=== PATIENT | female | born 1960 | race Caucasian/White ===

== ENCOUNTER 2018-07-31 00:35 | Emergency (ER) | payer BC ==
--- NOTE | 2018-07-31 00:53 | PDOC ---
History of Present Illness - General Stated Complaint: VOMIT Time Seen by Provider: 07/31/18 00:52 - History of Present Illness Initial Comments: 07/31/18 00:53 Ms. Peterson is a 57 yo female w/ pmh of breast CA (s/p bilateral mastectomy , not currently in treatment) and chronic vaginal pain who presents for evaluation of 1 day history of nausea/vomiting. Patient reports she ate pea soup tonight from last week and believes this may be the cause of her pain. Vomit looks like the pea soup she ate. No one else is sick at home however no one else ate the same food tonight. The patient denies chest pain, shortness of breath, headache and dizziness. Denies fever, chills, diarrhea and constipation. Denies dysuria, frequency, urgency and hematuria. Past History - Past Medical History Allergies/Adverse Reactions: Allergies Allergy/AdvReac Type Severity Reaction Status Date / Time No Known Allergies Allergy Verified 07/31/18 01:00 Review of Systems - Review of Systems Comments:: 07/31/18 00:53 GENERAL/CONSTITUTIONAL: No fever or chills. No weakness. HEAD, EYES, EARS, NOSE AND THROAT: No change in vision. No ear pain or discharge. No sore throat. CARDIOVASCULAR: No chest pain or shortness of breath RESPIRATORY: No cough, wheezing, or hemoptysis. GASTROINTESTINAL: +N/V as described w/ additional generalized abdominal pain. No diarrhea or constipation. GENITOURINARY: No dysuria, frequency, or change in urination. MUSCULOSKELETAL: No joint or muscle swelling or pain. No neck or back pain. SKIN: No rash NEUROLOGIC: No headache, vertigo, loss of consciousness, or change in strength/ sensation. ENDOCRINE: No increased thirst. No abnormal weight change HEMATOLOGIC/LYMPHATIC: No anemia, easy bleeding, or history of blood clots. ALLERGIC/IMMUNOLOGIC: No hives or skin allergy. 07/31/18 01:20 *Physical Exam - Physical Exam Comments: 07/31/18 00:53 GENERAL: Awake, alert, and fully oriented, in no acute distress HEAD: No signs of trauma, normocephalic, atraumatic EYES: PERRLA, EOMI, sclera anicteric, conjunctiva clear ENT: Auricles normal inspection, hearing grossly normal, nares patent, oropharynx clear without exudates. Moist mucosa NECK: Normal ROM, supple, no lymphadenopathy, JVD, or masses LUNGS: No distress, speaks full sentences, clear to auscultation bilaterally HEART: Regular rate and rhythm, normal S1 and S2, no murmurs, rubs or gallops, peripheral pulses normal and equal bilaterally. ABDOMEN: +Diffuse abdominal TTP. Soft, normoactive bowel sounds. No guarding, no rebound. No masses EXTREMITIES: Normal inspection, Normal range of motion, no edema. No clubbing or cyanosis. NEUROLOGICAL: Cranial nerves II through XII grossly intact. Normal speech, normal gait, no focal sensorimotor deficits SKIN: Warm, Dry, normal turgor, no rashes or lesions noted. ED Treatment Course - LABORATORY CBC & Chemistry Diagram: 07/31/18 01:51 07/31/18 01:51 Medical Decision Making - Medical Decision Making 07/31/18 03:25 Ms. Peterson is a 57 yo female w/ pmh as described who presented for evaluation of acute nausea and vomiting. Patient given fluids/zofran/morphine with evaluation by CT abdomen and labs for infectious process. 07/31/18 06:22 Patient improved however with continued nausea. Repeat zofran and 2L bolus NS given for further symptomatic relief. CT significant for soft tissue thickening along gallbladder fundus versus small sludge, polyp, or adherent stone. Also multiple hepatic cysts. US ordered for further evaluation of gall bladder. 07/31/18 06:54 Patient signed out to Dr. Spears for further evaluation. *DC/Admit/Observation/Transfer Diagnosis at time of Disposition: Nausea and vomiting Qualifiers: Vomiting type: unspecified Vomiting Intractability: non-intractable Qualified Code(s): R11.2 - Nausea with vomiting, unspecified - Discharge Dispostion Condition at time of disposition: Fair - Referrals Referrals: Adarsh Jules MD [Primary Care Provider] - - Patient Instructions Printed Discharge Instructions: DI for Nausea -- Adult, DI for Vomiting -- Adult - Post Discharge Activity
[2018-07-31 01:00] VITALS: BMI 20.3
[2018-07-31] MEDS ORDERED: ONDANSETRON 4 MG/2 ML VIAL IVPUSH ONE ×2 (01:06→06:20)
[2018-07-31] MEDS ORDERED: morphine CARPU-JECT 4 MG/1 ML DISP.SYRIN IVPUSH ONE (01:06)
[2018-07-31] MEDS ORDERED: SODIUM CHLORIDE 1,000 ML IV STA ×3 (01:06→06:20)
--- NOTE | 2018-07-31 01:11 | PDOC ---
Attending Attestation - Resident Resident Name: Tien Thomas - HPI HPI: 07/31/18 05:09 Pt presents to the ED complaining of nausea and profuse vomiting that began last night. Also complaining of diffuse abdominal pain. - Physicial Exam PE: 07/31/18 05:15 Agree with resident exam. Patient is alert and in no acute distress. Abdomen is soft and non distended, but diffusely tender to deep palpation without guarding or rebound. - Medical Decision Making 07/31/18 05:17 Pt presents to the ED complaining of nausea and vomiting. + elevated WBC count and diffuse abdominal tenderness. Will check labs and CT abdomen pelvis to rule out intraabdominal pathology. Nausea improved after zofran.
[2018-07-31] MEDS ORDERED: ONDANSETRON 4 MG/2 ML VIAL ONE ×2 (01:57→06:43)
[2018-07-31] MEDS ORDERED: morphine SULFATE 4 MG/ML VIAL ONE (01:57)
[2018-07-31 02:00] LABS: EOS % 0.3 % (0-4.5); HEMATOCRIT 43.3 % (32.4-45.2); HEMOGLOBIN 14.6 GM/dL (10.7-15.3); LYMPH % 5.9 % (8-40); MCHC 33.7 g/dl (32.0-36.0); MEAN CELL VOLUME 88.9 fl (80-96); MEAN PLT VOLUME 9.7 fl (7.5-11.1); MONO % 1.9 % (3.8-10.2); NEUT % 91.9 % (42.8-82.8); PLATELET COUNT 225 K/MM3 (134-434); RBC 4.87 M/mm3 (3.60-5.2); RDW 14.3 % (11.6-15.6); WHITE BLOOD COUNT 14.5 K/mm3 (4.0-10.0)
[2018-07-31 03:04] LABS: ALBUMIN 3.9 g/dl (3.4-5.0); ALK PHOS 86 U/L (45-117); ANION GAP 10 MMOL/L (8-16); BILIRUBIN,TOTAL 0.5 mg/dL (0.2-1); BLOOD UREA NITROGEN 37 mg/dL (7-18); CALCIUM 9.5 mg/dL (8.5-10.1); CHLORIDE 105 mmol/L (98-107); CO2 24 mmol/L (21-32); CREATININE 0.8 mg/dL (0.55-1.3); GLUCOSE,RANDOM 152 mg/dL (74-106); LIPASE 447 U/L (73-393); POTASSIUM 4.9 mmol/L (3.5-5.1); SGOT/AST 27 U/L (15-37); SGPT/ALT 27 U/L (13-61); SODIUM 139 mmol/L (136-145); TOT PROT 7.4 g/dl (6.4-8.2)
[2018-07-31] MEDS ORDERED: METOCLOPRAMIDE HCL INJECTION 10 MG/2 ML VIAL ONE (03:57)
[2018-07-31] MEDS: METOCLOPRAMIDE HCL INJECTION 10 MG/2 ML VIAL IVPUSH ONE ×2 (04:01→04:17)
[2018-07-31 05:13] LABS: URINE APPEARANCE CLEAR; URINE BILIRUBIN NEGATIVE (<2.0 mg/dL); URINE COLOR STRAW; URINE GLUCOSE (UA) NEGATIVE (NEGATIVE); URINE KETONE TRACE (NEGATIVE); URINE LEUK ESTERASE NEGATIVE (NEGATIVE); URINE NITRITE NEGATIVE (NEGATIVE); URINE PROTEIN NEGATIVE (NEGATIVE); URINE UROBILINOGEN NEGATIVE mg/dL (0.2-1.0)
[2018-07-31] MEDS ORDERED: MAG HYDROX/AL HYDROX/SIMETH 30 ML UNIT-DOSE CUP PO ONE (05:23)
[2018-07-31] MEDS ORDERED: MAG HYDROX/AL HYDROX/SIMETH 30 ML UNIT-DOSE CUP ONE (06:15)
[2018-07-31 06:20] LABS: ACANTHOCYTES 0; ANISOCYTOSIS 0; HELMET CELLS 0; HOWELL-JOLLY BODIES 0; MACROCYTOSIS 0; OVALOCYTE 0; PLATELET ESTIMATE NORMAL; ROULEAU 0; SICKELED CELLS 0; TARGET CELLS 0; TEAR DROP CELLS 0; TOXIC GRANULATION 0
--- NOTE | 2018-07-31 07:32 | PDOC ---
*Physical Exam - Vital Signs Last Vital Signs Temp Pulse Resp BP Pulse Ox 97.7 F 92 H 20 106/78 97 07/31/18 00:35 07/31/18 00:35 07/31/18 00:35 07/31/18 00:35 07/31/18 00:35 <Suzette Spears - Last Filed: 07/31/18 10:54> - Vital Signs Last Vital Signs Temp Pulse Resp BP Pulse Ox 98 F 72 16 122/70 100 07/31/18 09:54 07/31/18 09:54 07/31/18 09:54 07/31/18 09:54 07/31/18 09:54 <Kiersten Tamez - Last Filed: 07/31/18 17:52> ED Treatment Course - LABORATORY CBC & Chemistry Diagram: 07/31/18 01:51 07/31/18 01:51 - ADDITIONAL ORDERS Additional order review: Laboratory Results 07/31/18 07/31/18 04:35 01:51 Sodium 139 Potassium 4.9 Chloride 105 Carbon Dioxide 24 Anion Gap 10 BUN 37 H Creatinine 0.8 Creat Clearance w eGFR > 60 Random Glucose 152 H Calcium 9.5 Total Bilirubin 0.5 AST 27 ALT 27 Alkaline Phosphatase 86 Total Protein 7.4 Albumin 3.9 Lipase 447 H Urine Color Straw Urine Appearance Clear Urine pH 8.0 Ur Specific Center [place] 1.015 Urine Protein Negative Urine Glucose (UA) Negative Urine Ketones Trace H Urine Blood Negative Urine Nitrite Negative Urine Bilirubin Negative Urine Urobilinogen Negative Ur Leukocyte Esterase Negative 07/31/18 01:51 RBC 4.87 MCV 88.9 MCHC 33.7 RDW 14.3 MPV 9.7 Neutrophils % 91.9 H Lymphocytes % 5.9 L Monocytes % 1.9 L Eosinophils % 0.3 Basophils % 0.0 - Medications Given in the ED: ED Medications Discontinued Medications Generic Name Dose Route Start Last Admin Trade Name Freq PRN Reason Stop Dose Admin Al Hydroxide/Mg Hydroxide 30 ml 07/31/18 05:23 07/31/18 06:17 Mylanta Oral Suspension - PO 07/31/18 05:24 30 ml ONCE ONE Administration Sodium Chloride 1,000 mls @ 1,000 mls/hr 07/31/18 01:06 07/31/18 02:10 Normal Saline - IV 07/31/18 02:05 1,000 mls/hr ASDIR STA Administration Sodium Chloride 1,000 mls @ 1,000 mls/hr 07/31/18 03:30 07/31/18 04:01 Normal Saline - IV 07/31/18 04:29 1,000 mls/hr ASDIR STA Administration Sodium Chloride 1,000 mls @ 1,000 mls/hr 07/31/18 06:20 07/31/18 06:49 Normal Saline - IV 07/31/18 07:19 1,000 mls/hr ASDIR STA Administration Metoclopramide HCl 10 mg 07/31/18 03:28 07/31/18 04:17 Reglan Injection - IVPUSH 07/31/18 03:29 Not Given ONCE ONE Morphine Sulfate 4 mg 07/31/18 01:06 07/31/18 02:10 Morphine Injection - IVPUSH 07/31/18 01:07 4 mg ONCE ONE Administration Ondansetron HCl 4 mg 07/31/18 01:06 07/31/18 02:11 Zofran Injection IVPUSH 07/31/18 01:07 4 mg ONCE ONE Administration Ondansetron HCl 4 mg 07/31/18 06:20 07/31/18 06:50 Zofran Injection IVPUSH 07/31/18 06:21 4 mg ONCE ONE Administration <Suzette Spears - Last Filed: 07/31/18 10:54> - LABORATORY CBC & Chemistry Diagram: 07/31/18 01:51 07/31/18 01:51 - ADDITIONAL ORDERS Additional order review: Laboratory Results 07/31/18 07/31/18 04:35 01:51 Sodium 139 Potassium 4.9 Chloride 105 Carbon Dioxide 24 Anion Gap 10 BUN 37 H Creatinine 0.8 Creat Clearance w eGFR > 60 Random Glucose 152 H Calcium 9.5 Total Bilirubin 0.5 AST 27 ALT 27 Alkaline Phosphatase 86 Total Protein 7.4 Albumin 3.9 Lipase 447 H Urine Color Straw Urine Appearance Clear Urine pH 8.0 Ur Specific Center [place] 1.015 Urine Protein Negative Urine Glucose (UA) Negative Urine Ketones Trace H Urine Blood Negative Urine Nitrite Negative Urine Bilirubin Negative Urine Urobilinogen Negative Ur Leukocyte Esterase Negative 07/31/18 01:51 RBC 4.87 MCV 88.9 MCHC 33.7 RDW 14.3 MPV 9.7 Neutrophils % 91.9 H Lymphocytes % 5.9 L Monocytes % 1.9 L Eosinophils % 0.3 Basophils % 0.0 - Medications Given in the ED: ED Medications Discontinued Medications Generic Name Dose Route Start Last Admin Trade Name Tracey PRN Reason Stop Dose Admin Al Hydroxide/Mg Hydroxide 30 ml 07/31/18 05:23 07/31/18 06:17 Mylanta Oral Suspension - PO 07/31/18 05:24 30 ml ONCE ONE Administration Sodium Chloride 1,000 mls @ 1,000 mls/hr 07/31/18 01:06 07/31/18 02:10 Normal Saline - IV 07/31/18 02:05 1,000 mls/hr ASDIR STA Administration Sodium Chloride 1,000 mls @ 1,000 mls/hr 07/31/18 03:30 07/31/18 04:01 Normal Saline - IV 07/31/18 04:29 1,000 mls/hr ASDIR STA Administration Sodium Chloride 1,000 mls @ 1,000 mls/hr 07/31/18 06:20 07/31/18 06:49 Normal Saline - IV 07/31/18 07:19 1,000 mls/hr ASDIR STA Administration Metoclopramide HCl 10 mg 07/31/18 03:28 07/31/18 04:17 Reglan Injection - IVPUSH 07/31/18 03:29 Not Given ONCE ONE Morphine Sulfate 4 mg 07/31/18 01:06 07/31/18 02:10 Morphine Injection - IVPUSH 07/31/18 01:07 4 mg ONCE ONE Administration Ondansetron HCl 4 mg 07/31/18 01:06 07/31/18 02:11 Zofran Injection IVPUSH 07/31/18 01:07 4 mg ONCE ONE Administration Ondansetron HCl 4 mg 07/31/18 06:20 07/31/18 06:50 Zofran Injection IVPUSH 07/31/18 06:21 4 mg ONCE ONE Administration Ondansetron HCl 4 mg 07/31/18 10:29 07/31/18 10:50 Zofran - PO 07/31/18 10:30 4 mg ONCE ONE Administration <Kiersten Tamez - Last Filed: 07/31/18 17:52> Medical Decision Making - Medical Decision Making Pt was signed out to me by resident Dr. Thomas, who explained the presentation, ED course, any pending results, and needed interventions. Pending results include gallbladder US. Pt is currently stable and is lying comfortably. 07/31/18 07:27 Pt going for ultrasound. 07/31/18 08:19 Pt returned from US, pending results. IV line infiltrated, medical student placing additional line for IVF. Nursing staff aware. 07/31/18 09:25 Called US about results, still pending. Asked US to prioritize read, if possible. 07/31/18 10:18 [id number] CT/ABDOMEN & PELVIS CT WITH CONTR History of abdominal pain CT scan of the abdomen and pelvis following oral and intravenous contrast. Coronal and sagittal reformatted images were obtained 100 cc of Visipaque 320 was intravenously injected Comparison: None available Visualized lung base appears unremarkable and the heart is within normal limits in size. Partially included bilateral breast implants The liver is enlarged measuring 19.5 cm in craniocaudal length with innumerable tiny focal low-attenuation densities that are too small to be characterized by CT criteria , likely representing cysts. A larger right hepatic lobe simple cyst is present measuring 7.9 cm in maximum dimension. An adjacent the right hepatic lobe simple cyst is present at the dome measuring 1.1 cm. Gallbladder is adequately distended without intraluminal stones. Questionable mild thickening of the gallbladder wall at the fundus. Evaluation of the spleen, pancreas and both adrenal glands appear unremarkable. Borderline dilatation of the pancreatic duct which is within normal limits. The stomach is moderately distended without wall thickening. A questionable tiny hiatus hernia is present. Both kidneys are within normal limits in size with mild to moderate dilatation of the renal pelvis, right more than left likely representing an extrarenal pelvis. There is no evidence of hydroureter, renal or ureteral stone, bilaterally. There is no evidence of small bowel obstruction. Redundant colon with the cecum dipping into the lower pelvis as well as a redundant and hepatic flexure without wall thickening. Terminal ileum appears unremarkable. The appendix was not identified. Partially distended urinary bladder without wall thickening. Nonvisualization of the uterus. Perirectal and pericecal fat are clear. No free air, free fluid or gross enlarged lymph nodes are identified. Visualized osseous structures appear intact IMPRESSION: Multiple cysts hepatic cysts with the largest simple cyst measuring 7.9 cm in maximum dimension. Other tiny innumerable hepatic cysts are present. No gallstones are identified. Nonvisualization of the uterus compatible status post hysterectomy. Otherwise, there is no CT evidence of an acute process in the abdomen pelvis. A preliminary report was forwarded by the [facility] service, IMAGING MANAGER [facility] 07/31/18 10:38 Still pending US read. Providing pt with 4 mg PO zofran. Pt refusing IV at this point, as prior line is infiltrated. Pt is tolerating ice chips. 07/31/18 10:38 [id number] US/ABDOMEN US -LIMITED Right upper quadrant pain Rule out cholecystitis. Right upper abdomen ultrasound. The liver measures 17.5 cm in sagittal length with a simple cyst measuring 7.6 cm in maximum dimension. Previously described tiny innumerable hepatic cysts are not appreciated on this exam. However, it is likely manifested as a coarse echotexture of the liver with diffuse tiny echogenic foci.. Gallbladder is adequately distended with a mucosal fold identified and without intraluminal stones or wall thickening. No pericholecystic free fluid is present. No intra or extrahepatic bile duct dilatation is seen. The right kidney measures 10.5 cm sagittal length and appears unremarkable. Visualized portion of the pancreas appears unremarkable with borderline dilatation of the pancreatic duct again noted which is nonspecific. Visualized portion of the proximal abdominal aorta and inferior vena cava appear unremarkable. Normal flow in the main portal vein. IMPRESSION: Mucosal fold in the gallbladder without wall thickening or intraluminal stones. No pericholecystic free fluid is present. Right hepatic lobe simple cyst measuring 7.6 cm in maximum dimension with a coarse echotexture. Please refer to prior CT scan of the abdomen findings, done earlier on the same date. 07/31/18 10:54 No acute GB pathology. Pt tolerated PO intake in the department, and pt nausea improved with zofran. Considering normal lab results and imaging pt can be discharged to home with follow-up. Pt advised to follow-up with PCP and gastroenterology in 1-2 days. Strict return precautions provided with pt understanding. 07/31/18 10:54 <Suzette Spears - Last Filed: 07/31/18 10:54> - Medical Decision Making signed out from Dr. Gaines pending US read labs and lytes reviewed, mild nonspecific leukocytosis 14K noted CT a/p with hepatic cysts (known), no stones, otherwise unremarkable RUQ sono with liver cyst, no stones or findings to suggest acute latoya given analgesia, antiemetics and fluids overnight, on reeval, clinically improved, megan PO and eager for discharge dispo: DC with results, GI followup, rx of zofran already at home. 07/31/18 10:53 07/31/18 17:52 <Kiersten Tamez - Last Filed: 07/31/18 17:52> *DC/Admit/Observation/Transfer - Discharge Dispostion Decision to Admit order: No <Suzette Spears - Last Filed: 07/31/18 10:54> <Kiersten Tamez - Last Filed: 07/31/18 17:52> Diagnosis at time of Disposition: Nausea and vomiting Qualifiers: Vomiting type: unspecified Vomiting Intractability: non-intractable Qualified Code(s): R11.2 - Nausea with vomiting, unspecified - Discharge Dispostion Disposition: HOME Condition at time of disposition: Improved - Referrals Referrals: Adarsh Jules MD [Primary Care Provider] - Chris Manuel [Non Staff, Medical] - - Patient Instructions Printed Discharge Instructions: DI for Nausea -- Adult, DI for Vomiting -- Adult Additional Instructions: You were seen in the ER today for nausea and vomiting. The results of your labs and imaging today showed mild dehydration, and your CT scan showed liver cysts. Please follow-up with your primary care doctor and gastroenterology within 1-2 days to discuss your visit and make sure your symptoms have improved. Please return to the ER if you have any worsening pain, development of fevers or chills , loss of consciousness, inability to tolerate food or fluids, or any other concerns. - Post Discharge Activity
[2018-07-31 09:56] VITALS: TEMP 98
[2018-07-31] MEDS ORDERED: PANTOPRAZOLE SODIUM 40 MG VIAL ONE (10:06)
[2018-07-31] MEDS ORDERED: PIPERACILLIN/TAZOB 2.25 GM 2.25 GM/50 ML BAG IVPB ONE (10:06)
[2018-07-31] MEDS ORDERED: ONDANSETRON 4 MG TABLET PO ONE (10:29)
[2018-07-31] MEDS ORDERED: ONDANSETRON *ODT* 4 MG TABLET ONE (10:37)
[2018-07-31 11:33] VITALS: BP 118/69; PULSE 70
== END 2018-07-31 11:15 | disposition home or self-care (01) ==
LOC: JER 00:35
DX: R11.2 Nausea with vomiting, unspecified (principal); E86.0 Dehydration; Z85.3 Personal history of malignant neoplasm of breast; Z90.13 Acquired absence of bilateral breasts and nipples
CPT/HCPCS: 36415; 74177-TC; 76705-TC; 80053; 81003; 83690; 85025; 87086; 99284-25; J7030